=== PATIENT | male | born 1955 | race Caucasian/White ===

== ENCOUNTER → 2024-07-07 | Outpatient (CLI) | payer OTHER, SELFPAY ==
[2024-07-07 09:10] LABS: Collection Type, Urine Clean Catch; Squamous Epithelial Cell,Urine 0 /hpf (0-5)
[2024-07-07 09:34] LABS: Bilirubin,Urine Negative (Negative); Blood,Urine Negative (Negative); Clarity,Urine Clear (Clear/Hazy); Color,Urine Colorless (Lt Yel-Yel); Glucose, Urine 4+ (Negative); Ketones,Urine Negative (Negative); Leukocyte Esterase,Urine Negative (Negative); Nitrite,Urine Negative (Negative); PH,Urine 6.5 (5.0-7.0); Protein,Urine Negative (Neg - Trace); RBC,Urine 1 /hpf (0-3); Specific Gravity,Urine 1.005 (1.001-1.035); Urobilinogen,Urine Negative mg/dL (0.0-1.0); WBC,Urine < 1 /hpf (0-5)
[2024-07-07 09:38] LABS: Glucose Estimated Average 177 mg/dL (80-131); Hemoglobin A1C 7.8 % Hgb (4.8-6.0)
[2024-07-07 09:49] LABS: Albumin, Serum 4.5 gm/dL (3.4-4.8); Anion Gap 4 (7-16); BUN/Creatinine Ratio 13 Ratio (12-20); Blood Urea Nitrogen 21 mg/dL (9-23); Calcium 9.8 mg/dL (8.3-10.6); Calcium (Corrected) 9.8 mg/dL (8.5-10.1); Carbon Dioxide 30.2 mMol/L (20.0-31.0); Chloride 102 mMol/L (98-107); Creatinine (Component) 1.6 mg/dL (0.6-1.3); Glucose 110 mg/dL (74-106); Osmolality,Calculated 275 (275-295); Phosphorous 3.9 mg/dL (2.4-5.1); Potassium 4.9 mMol/L (3.4-5.1); Sodium 136 mMol/L (136-145); eGFR 47 See Note
== END | disposition home or self-care (01) ==
PROVIDERS: PCP Internal Medicine; Referring Provider Internal Medicine; Visit Provider Internal Medicine
DX: I12.9 Hypertensive chronic kidney disease with stage 1 through stage 4 chronic kidney disease, or unspecified chronic kidney disease (principal); E11.22 Type 2 diabetes mellitus with diabetic chronic kidney disease; N18.30 Chronic kidney disease, stage 3 unspecified; E78.5 Hyperlipidemia, unspecified
CPT/HCPCS: 36415; 80069; 81001; 83036

== ENCOUNTER → 2024-10-07 | Outpatient (CLI) | payer OTHER, SELFPAY ==
[2024-10-07 08:34] LABS: Basophils # (Auto) 0.1 Thou/mm3 (0.0-0.2); Basophils % (Auto) 1 % (0-2.5); Eosinophils # (Auto) 0.2 Thou/mm3 (0.0-0.5); Eosinophils % (Auto) 2 % (0-10); Hematocrit 48.7 % (41.0-53.0); Hemoglobin 16.2 g/dL (13.5-16.0); Immature Granulocytes % (Auto) 1 % (0-0); Immature Granulocytes Auto 0.05 Thou/mm3 (0.00-0.00); Lymphocytes # (Auto) 1.6 Thou/mm3 (1.0-4.8); Lymphocytes % (Auto) 15 % (10-50); Mean Corpuscular HGB Conc 33.3 g/dl (31.0-37.0); Mean Corpuscular Hemoglobin 29.3 pg (25.0-35.0); Mean Corpuscular Volume 88 fL (80-100); Monocytes # (Auto) 0.7 Thou/mm3 (0.0-0.8); Monocytes % (Auto) 7 % (0-12); Neutrophils # (Auto) 7.6 Thou/mm3 (1.8-7.7); Neutrophils % (Auto) 75 % (37-80); Nucleated Red Blood Cell % 0 /100 WBC (0); Platelet Count 221 Thou/mm3 (140-440); Red Blood Count 5.52 Miln/mm3 (4.50-5.90); White Blood Count 10.1 Thou/mm3 (3.8-10.6)
[2024-10-07 08:56] LABS: Prostate Specific Antigen 0.76 ng/mL (0-4.00)
[2024-10-07 09:00] LABS: Glucose Estimated Average 189 mg/dL (80-131); Hemoglobin A1C 8.2 % Hgb (4.8-6.0); Vitamin B12 776 pg/mL (211-911); Vitamin D 25 Hydroxy Total 32.7 ng/mL (7.3-40.2)
[2024-10-07 09:04] LABS: Alanine Aminotransferase 25 U/L (10-49); Albumin, Serum 4.7 gm/dL (3.4-4.8); Alkaline Phosphatase 83 U/L (46-116); Anion Gap 12 (7-16); Aspartate Amino Transferase 17 U/L (0-34); BUN/Creatinine Ratio 15 Ratio (12-20); Bilirubin,Total 0.7 mg/dL (0.3-1.2); Blood Urea Nitrogen 19 mg/dL (9-23); Calcium 9.4 mg/dL (8.3-10.6); Calcium (Corrected) 9.4 mg/dL (8.5-10.1); Carbon Dioxide 24.5 mMol/L (20.0-31.0); Cardiac Risk Estimate 2.7 RATIO (4.0-6.7); Chloride 102 mMol/L (98-107); Cholesterol 152 mg/dL (132-200); Creatinine (Component) 1.3 mg/dL (0.6-1.3); Globulin 2.4 gm/dL (2.3-3.5); Glucose 130 mg/dL (74-106); HDL Cholesterol 56 mg/dL (40-60); LDL Cholesterol,Calculated 76 mg/dL (0-130); Osmolality,Calculated 279 (275-295); Potassium 4.1 mMol/L (3.4-5.1); Sodium 138 mMol/L (136-145); Total Protein 7.1 gm/dL (5.7-8.2); Triglycerides 101 mg/dL (30-150); Uric Acid 6.9 mg/dL (3.7-9.2); eGFR > 60 See Note
[2024-10-07 11:43] LABS: Collection Type, Urine Clean Catch; Squamous Epithelial Cell,Urine 0 /hpf (0-5)
[2024-10-07 12:09] LABS: Bilirubin,Urine Negative (Negative); Blood,Urine Negative (Negative); Clarity,Urine Clear (Clear/Hazy); Color,Urine Lt-Yellow (Lt Yel-Yel); Glucose, Urine 4+ (Negative); Ketones,Urine Negative (Negative); Leukocyte Esterase,Urine Negative (Negative); Nitrite,Urine Negative (Negative); Protein,Urine Trace (Neg - Trace); RBC,Urine 1 /hpf (0-3); Specific Gravity,Urine 1.025 (1.001-1.035); Urobilinogen,Urine Negative mg/dL (0.0-1.0); WBC,Urine < 1 /hpf (0-5)
[2024-10-07 12:29] LABS: Creatinine MALB Rnd Ur 59 mg/dL (30-125); Microalbumin Creat Ratio 185 mg/gCrea (<30); Microalbumin, Random Urine 109 mg/L (0-300)
== END | disposition home or self-care (01) ==
LOC: COPL 07:33
PROVIDERS: PCP Internal Medicine; Referring Provider Internal Medicine; Visit Provider Internal Medicine
DX: I12.9 Hypertensive chronic kidney disease with stage 1 through stage 4 chronic kidney disease, or unspecified chronic kidney disease (principal); E11.22 Type 2 diabetes mellitus with diabetic chronic kidney disease; N18.30 Chronic kidney disease, stage 3 unspecified; E78.5 Hyperlipidemia, unspecified
CPT/HCPCS: 36415; 80053; 80061; 81001; 82043; 82306; 82570; 82607; 83036; 84153; 84443; 84550; 85025

== ENCOUNTER → 2025-01-04 | Outpatient (CLI) | payer OTHER, SELFPAY ==
[2025-01-04 08:51] LABS: Glucose Estimated Average 171 mg/dL (80-131); Hemoglobin A1C 7.6 % Hgb (4.8-6.0)
[2025-01-04 09:05] LABS: Albumin, Serum 4.5 gm/dL (3.4-4.8); Anion Gap 8 (7-16); BUN/Creatinine Ratio 12 Ratio (12-20); Blood Urea Nitrogen 15 mg/dL (9-23); Calcium 8.8 mg/dL (8.3-10.6); Calcium (Corrected) 8.8 mg/dL (8.5-10.1); Carbon Dioxide 27.5 mMol/L (20.0-31.0); Chloride 103 mMol/L (98-107); Creatinine (Component) 1.3 mg/dL (0.6-1.3); Glucose 107 mg/dL (74-106); Osmolality,Calculated 276 (275-295); Potassium 4.5 mMol/L (3.4-5.1); Sodium 138 mMol/L (136-145); eGFR > 60 See Note
[2025-01-04 10:18] LABS: Creatinine MALB Rnd Ur 22 mg/dL (30-125); Microalbumin Creat Ratio 155 mg/gCrea (<30); Microalbumin, Random Urine 34 mg/L (0-300)
== END | disposition home or self-care (01) ==
LOC: COPL 07:53
PROVIDERS: PCP Internal Medicine; Referring Provider Internal Medicine; Visit Provider Internal Medicine
DX: E11.22 Type 2 diabetes mellitus with diabetic chronic kidney disease (principal); N18.30 Chronic kidney disease, stage 3 unspecified
CPT/HCPCS: 36415; 80069; 82043; 82570; 83036

== ENCOUNTER → 2025-05-10 | Outpatient (CLI) | payer OTHER, SELFPAY ==
[2025-05-10 11:39] LABS: Glucose Estimated Average 148 mg/dL (80-131); Hemoglobin A1C 6.8 % Hgb (4.8-6.0)
[2025-05-10 11:50] LABS: Albumin, Serum 4.2 gm/dL (3.4-4.8); Anion Gap 8 (7-16); BUN/Creatinine Ratio 11 Ratio (12-20); Blood Urea Nitrogen 15 mg/dL (9-23); Calcium 9.3 mg/dL (8.3-10.6); Calcium (Corrected) 9.3 mg/dL (8.5-10.1); Carbon Dioxide 28.6 mMol/L (20.0-31.0); Chloride 104 mMol/L (98-107); Creatinine (Component) 1.4 mg/dL (0.6-1.3); Glucose 145 mg/dL (74-106); Osmolality,Calculated 285 (275-295); Phosphorous 3.9 mg/dL (2.4-5.1); Potassium 4.8 mMol/L (3.4-5.1); Sodium 141 mMol/L (136-145); eGFR 55 See Note
[2025-05-10 12:52] LABS: Creatinine MALB Rnd Ur 35 mg/dL (30-125); Microalbumin Creat Ratio 103 mg/gCrea (<30); Microalbumin, Random Urine 36 mg/L (0-300)
== END | disposition home or self-care (01) ==
LOC: COPL 10:45
PROVIDERS: PCP Internal Medicine; Referring Provider Internal Medicine; Visit Provider Internal Medicine
DX: E11.22 Type 2 diabetes mellitus with diabetic chronic kidney disease (principal); N18.30 Chronic kidney disease, stage 3 unspecified
CPT/HCPCS: 36415; 80069; 82043; 82570; 83036

== ENCOUNTER 2025-06-26 12:45 | Day surgery (SDC) | payer OTHER, SELFPAY ==
--- NOTE | 2025-06-23 08:17 | EKG_ITS ---
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
[2025-06-23 11:47] LABS: Basophils # (Auto) 0.1 Thou/mm3 (0.0-0.2); Basophils % (Auto) 1 % (0-2.5); Eosinophils # (Auto) 0.1 Thou/mm3 (0.0-0.5); Eosinophils % (Auto) 2 % (0-10); Hematocrit 45.8 % (41.0-53.0); Hemoglobin 15.5 g/dL (13.5-16.0); Immature Granulocytes Auto 0.04 Thou/mm3 (0.00-0.00); Lymphocytes # (Auto) 1.7 Thou/mm3 (1.0-4.8); Lymphocytes % (Auto) 21 % (10-50); Mean Corpuscular HGB Conc 33.8 g/dl (31.0-37.0); Mean Corpuscular Hemoglobin 29.8 pg (25.0-35.0); Mean Corpuscular Volume 88 fL (80-100); Monocytes # (Auto) 0.5 Thou/mm3 (0.0-0.8); Monocytes % (Auto) 6 % (0-12); Neutrophils # (Auto) 5.8 Thou/mm3 (1.8-7.7); Neutrophils % (Auto) 70 % (37-80); Nucleated Red Blood Cell # 0.00 Thou/mm3 (0.00-0.00); Nucleated Red Blood Cell % 0 /100 WBC (0); Platelet Count 219 Thou/mm3 (140-440); RDW Standard Deviation 43.5 fL (35.1-43.9); Red Blood Count 5.21 Miln/mm3 (4.50-5.90); White Blood Count 8.2 Thou/mm3 (3.8-10.6)
[2025-06-23 11:56] LABS: INR 1.0 (0.9-1.3); Partial Thromboplastin Time 26.9 Seconds (22.0-36.0); Prothrombin Time 10.9 Seconds (9.0-12.2)
[2025-06-23 11:58] LABS: Alanine Aminotransferase 22 U/L (10-49); Albumin, Serum 4.7 gm/dL (3.4-4.8); Albumin/Globulin Ratio 2.4 (1.2-2.2); Alkaline Phosphatase 66 U/L (46-116); Anion Gap 9 (7-16); Aspartate Amino Transferase 18 U/L (0-34); BUN/Creatinine Ratio 8 Ratio (12-20); Bilirubin,Total 0.6 mg/dL (0.3-1.2); Blood Urea Nitrogen 11 mg/dL (9-23); Calcium 9.4 mg/dL (8.3-10.6); Calcium (Corrected) 9.4 mg/dL (8.5-10.1); Carbon Dioxide 28.6 mMol/L (20.0-31.0); Chloride 103 mMol/L (98-107); Creatinine (Component) 1.4 mg/dL (0.6-1.3); Globulin 2.0 gm/dL (2.3-3.5); Glucose 192 mg/dL (74-106); Osmolality,Calculated 285 (275-295); Potassium 4.9 mMol/L (3.4-5.1); Sodium 141 mMol/L (136-145); Total Protein 6.7 gm/dL (5.7-8.2); eGFR 55 See Note
[2025-06-23 15:27] VITALS: BMI 37.4
[2025-06-26] VITALS (10 sets, daily range): BP systolic 159–196; BP diastolic 91–102; PULSE 74–80; RESP 14–17; TEMP 36.2–36.7; O2SAT 95–99; BMI 37.1
[2025-06-26] MEDS: RINGERS LACTATED 1000 ML 1,000 ML 20 ML IV (14:25)
--- NOTE | 2025-06-26 15:02 | SUR.PHASEII ---
pt received from OR in recovery bay 1. pt awake and alert, breathing unlabored on room air. v/s stable. report received from Winter HOLLAND.
--- NOTE | 2025-06-26 15:53 | SUR.PHASEII ---
pt awake and alert, pt meets d/c criteria. pt sitting in wheelchair dressed waiting for ride. will continue to monitor. pt able to tolerate oral fluids without difficulty swallowing or nausea/vomiting.
--- NOTE | 2025-06-26 16:05 | SUR.PHASEII ---
pt awake and alert, breathing unlabored on room air. v/s stable. pt able to ambulate to wheelchair with steady gait. d/c instructions given with friend Yobani in room, all questions answered. pt d/c via wheelchair with all belongings.
== END 2025-06-26 16:05 | disposition home or self-care (01) ==
LOC: S2EX 16:08
PROVIDERS: Anesthesiology; PCP Internal Medicine; Referring Provider Surgery; Visit Provider Surgery
PROC: 0DJD8ZZ Inspection of Lower Intestinal Tract, Via Natural or Artificial Opening Endoscopic (ICD-10-PCS; CPT 45378; principal; 2025-06-26 14:30)
DX: Z12.11 Encounter for screening for malignant neoplasm of colon (principal); D12.3 Benign neoplasm of transverse colon; D12.8 Benign neoplasm of rectum; E11.9 Type 2 diabetes mellitus without complications; I10 Essential (primary) hypertension; Z01.810 Encounter for preprocedural cardiovascular examination
CPT/HCPCS: 45380; 45385; 36415; 80053; 85025; 85610; 85730; 93005; A4649; J7120

== ENCOUNTER 2025-07-29 08:34 | Emergency (ER) | payer OTHER, SELFPAY ==
[2025-07-29 08:42] VITALS: BP 167/84; PULSE 76; RESP 18; TEMP 37; O2SAT 97; BMI 37.4
--- NOTE | 2025-07-29 08:59 | XR_ITS ---
Examination: CT brain head without contrast. 2-D sagittal coronal reconstructions Date and time of exam: July 29, 2025, 0926 hours, comparison December 19, 2006 INDICATIONS: Onset left arm and mouth numbness beginning 2:00 a.m. this morning CTDI: vol (mGy): 60.7 DLP: (mGycm): 13.40 Technique: Multiple CT axial sections of the brain have been obtained, 5 mm slice thickness. Contrast has not been administered. 2-D sagittal, coronal reconstructions have been obtained Low dose protocols were performed. One or more of the following dose reduction techniques were used; automated exposure control, adjustment of the mA and/or KV according to patient size, use of iterative reconstruction technique. Findings: No significant ventricular enlargement. Intra-axial or extra-axial hemorrhage density is not seen. No mass effect or midline shift Basal cisterns are not remarkable. Fourth ventricle is midline. Cranial vault intact. Impression: Negative for acute hemorrhage, mass effect or midline shift As clinically warranted, consider brain MRI follow-up, stroke protocol
--- NOTE | 2025-07-29 08:59 | XR_ITS ---
EXAMINATION: PA lateral chest 2 views TECHNIQUE: Upright PA lateral chest 2 views Date and time: July 29, 2025, 0936 hours, comparison February 06, 2021 INDICATION: Chest pain today. FINDINGS: Nodular parenchymal disease left upper lobe again noted, 35 mm, 16 mm stable compared with February 06, 2021 Mild prominence left ventricle Moderate vascular congestion Blunting of the left lateral costophrenic angle IMPRESSION: Stable pulmonary mass lesions in the left upper lobe Moderate vascular congestion
--- NOTE | 2025-07-29 08:59 | EKG_ITS ---
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
--- NOTE | 2025-07-29 09:01 | EDRME_ITS ---
Rapid Medical Screening Exam RME Arrival date/time: 07/29/25 08:34 Chief Complaint: General Adult/Misc Complain Time Seen by Provider: 07/29/25 08:51 Vital signs: Vital Signs Temperature 98.6 F 07/29/25 08:42 Pulse Rate 76 07/29/25 08:42 Respiratory Rate 18 07/29/25 08:42 Blood Pressure 167/84 H 07/29/25 08:42 Pulse Oximetry (%) 97 07/29/25 08:42 Oxygen Delivery Method Room Air 07/29/25 08:42 RME Narrative: 69-year-old male history of diabetes cholesterol and hypertension here for tingling to left face and left arm since this morning 7 hours ago. States only came in because his uncle had a stroke and was worried. No slurred speech. Reports sensation of Novocain to left lip. No rash. No foot drop. Able to move arm. No slurred speech. No headache. No chest pain. Did take 181 mg aspirin before arrival. 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
[2025-07-29 09:35] LABS: Basophils # (Auto) 0.1 Thou/mm3 (0.0-0.2); Basophils % (Auto) 1 % (0-2.5); Eosinophils # (Auto) 0.2 Thou/mm3 (0.0-0.5); Eosinophils % (Auto) 2 % (0-10); Hematocrit 47.2 % (41.0-53.0); Hemoglobin 15.9 g/dL (13.5-16.0); Immature Granulocytes Auto 0.05 Thou/mm3 (0.00-0.00); Lymphocytes # (Auto) 1.6 Thou/mm3 (1.0-4.8); Lymphocytes % (Auto) 19 % (10-50); Mean Corpuscular HGB Conc 33.7 g/dl (31.0-37.0); Mean Corpuscular Hemoglobin 30.5 pg (25.0-35.0); Mean Corpuscular Volume 90 fL (80-100); Monocytes # (Auto) 0.6 Thou/mm3 (0.0-0.8); Monocytes % (Auto) 7 % (0-12); Neutrophils # (Auto) 5.9 Thou/mm3 (1.8-7.7); Neutrophils % (Auto) 71 % (37-80); Nucleated Red Blood Cell # 0.00 Thou/mm3 (0.00-0.00); Nucleated Red Blood Cell % 0 /100 WBC (0); Platelet Count 228 Thou/mm3 (140-440); RDW Standard Deviation 45.4 fL (35.1-43.9); Red Blood Count 5.22 Miln/mm3 (4.50-5.90); White Blood Count 8.3 Thou/mm3 (3.8-10.6)
[2025-07-29 09:43] LABS: B-Type Natriuretic Peptide < 20 pg/mL (0-100)
[2025-07-29 09:44] LABS: Alanine Aminotransferase 30 U/L (10-49); Albumin, Serum 4.7 gm/dL (3.4-4.8); Albumin/Globulin Ratio 2.0 (1.2-2.2); Alkaline Phosphatase 76 U/L (46-116); Anion Gap 8 (7-16); Aspartate Amino Transferase 22 U/L (0-34); BUN/Creatinine Ratio 13 Ratio (12-20); Bilirubin,Total 0.6 mg/dL (0.3-1.2); Blood Urea Nitrogen 18 mg/dL (9-23); Calcium 9.4 mg/dL (8.3-10.6); Calcium (Corrected) 9.4 mg/dL (8.5-10.1); Carbon Dioxide 28.0 mMol/L (20.0-31.0); Chloride 106 mMol/L (98-107); Creatinine (Component) 1.4 mg/dL (0.6-1.3); Estimated Creatinine Clearance 72.0 mL/min (>60); Globulin 2.4 gm/dL (2.3-3.5); Glucose 228 mg/dL (74-106); Osmolality,Calculated 292 (275-295); Potassium 4.4 mMol/L (3.4-5.1); Sodium 142 mMol/L (136-145); Total Protein 7.1 gm/dL (5.7-8.2); Troponin I < 0.020 ng/mL (0.0-0.045); eGFR 55 See Note
[2025-07-29 09:52] LABS: Amphetamine/Methamp Scrn,U Negative (Negative); Barbiturate Screen,Urine Negative (Negative); Benzodiazepines Screen,Urine Negative (Negative); Benzoylecgonine Screen, Ur Negative (Negative); Fentanyl Screen,Urine Negative (Negative); Opiate Screen,Urine Negative (Negative); THC Screen,Urine Negative (Negative)
== END 2025-07-29 11:21 | disposition left against medical advice (07) ==
PROVIDERS: Physician Assistant; Emergency Provider Emergency Medicine; PCP Internal Medicine
DX: R20.2 Paresthesia of skin (principal); R20.0 Anesthesia of skin; R07.9 Chest pain, unspecified; I49.8 Other specified cardiac arrhythmias; I10 Essential (primary) hypertension; Z53.29 Procedure and treatment not carried out because of patient's decision for other reasons
CPT/HCPCS: 36415; 70450; 71046; 80053; 80307; 83880; 84484; 85025; 93005; 99283; A9270

== ENCOUNTER → 2025-08-15 | Outpatient (CLI) | payer OTHER, SELFPAY ==
--- NOTE | 2025-08-15 11:30 | XR_ITS ---
Examination: CT lung low dose screening, without contrast. 2-D sagittal reconstructions. 2-D coronal reconstructions. 3-D reconstructions. Date and time of exam: August 15, 2025, 10:20 a.m., comparison December 31, 2021 INDICATION: Shortness of breath, diagnosis coccidiomycosis 2019, scarring in the left upper lobe on CT chest December 31, 2021 CTDI: vol (mGy): 20.2 DLP: (mGycm): 838 Technique: Multiple 1.25 mm axial sections of the lung low dose without intravenous contrast have been obtained. 2-D sagittal and coronal reconstructions have been obtained. 3-D reconstructions have been obtained. Low dose protocols were performed. One or more of the following dose reduction techniques were used; automated exposure control, adjustment of the mA and/or KV according to patient size, use of iterative reconstruction technique. Findings: No thoracic aortic aneurysmal dilatation Pulmonary artery segments are not enlarged Nodular masslike areas in the left upper lobe are again noted stable in appearance compared with December 31, 2021 Stable bilateral pulmonary nodules No interval infiltrates or pleural disease No visualized liver or splenic lesion Small gallstones No hydronephrosis IMPRESSION: Stable parenchymal disease in the left upper lobe Stable subcentimeter pulmonary nodules No interval active pneumonia
== END | disposition home or self-care (01) ==
PROVIDERS: Referring Provider Internal Medicine; Visit Provider Internal Medicine
DX: R91.8 Other nonspecific abnormal finding of lung field (principal)
CPT/HCPCS: 71271